=== PATIENT | male | born 1955 ===

== ENCOUNTER 2024-10-10 07:21 | Inpatient (IN) | payer OTHER ==
[~2024-10-10] VITALS: Ht 160 cm; Wt 49.9 kg
[2024-10-10] MEDS ORDERED: EZALLOR SPRINKL20 MG PO (08:17)
[2024-10-10] MEDS ORDERED: ECOTRIN81 MG PO (08:18)
[2024-10-10] MEDS ORDERED: COZAAR50 MG PO (08:18)
[2024-10-10] MEDS ORDERED: PLAVIX75 MG PO (08:19)
[2024-10-10] MEDS ORDERED: BUSPIRONE HCL5 MG PO (08:19)
[2024-10-10] MEDS ORDERED: [UNRECOGNIZED DRUG - OTHER] (08:20)
[2024-10-10] MEDS ORDERED: MEMANTINE HCL10 MG PO (08:20)
[2024-10-10 08:43] LABS: BASO % 0.3 % (0.1-1.2); EOS # 0.30 (0.04-0.54); EOS % 5.0 % (0.7-7.0); LYMPH # 1.67 (1.18-3.74); LYMPH % 27.7 % (19.3-53.1); MEAN PLATELET VOLUME 10.20 fl (9.4-12.4); MONO # 0.51 (0.24-0.82); MONO % 8.5 % (4.7-12.5); NEUT # 3.50 (1.56-6.13); NEUT % 58.0 % (34.0-71.1); RED CELL DISTRIBUTION WIDTH 13.6 % (11.6-14.4)
[2024-10-10 09:01] VITALS: BP 150/61
[2024-10-10 09:06] LABS: URINE APPEARANCE Clear; URINE BILIRRUBIN Negative (NEGATIVE); URINE BLOOD Negative; URINE COLOR Yellow; URINE GLUCOSE Negative (NEGATIVE); URINE KETONE Negative (NEGATIVE); URINE LEUKOCYTE Negative; URINE NITRATE Negative; URINE PROTEIN Negative (NEGATIVE); URINE UROBILINOGEN 0.2 E.U./dl
[2024-10-10 09:07] LABS: BUN CREA RATIO 20.0 (7.0-25.0); CREATININE SERUM 0.74 mg/dL (0.70-1.30); GFR 104.26; GLUCOSE FASTING 99.0 mg/dL (65-100); OSMOLALITY SERUM 278.0 MOSM/KG (275-295)
[2024-10-10 09:10] LABS: INR 0.97
[2024-10-10 09:11] LABS: URINE BACTERIA 4.8 uL (0.0-1933); URINE EPITHELIAL CELLS 3.0 uL (0.0-38.8); URINE RBC 5.4 uL (0.0-20.8); URINE WBC 2.4 uL (0.0-23.2)
[2024-10-10 09:35] LABS: URINE CAST 0.14 uL (0.0-1.40)
[2024-10-16] MEDS ORDERED: CEFAZOLIN SODIUM 1,000 MG VIAL ONE (09:10)
[2024-10-16] MEDS ORDERED: TRANEXAMIC ACID 100MG/1ML (1000MG) AMPUL ONE (09:10)
[2024-10-16] MEDS ORDERED: MORPHINE SULFATE 4 MG/ML CARTRIDGE IV ONE (13:15)
[2024-10-16] MEDS ORDERED: LIDOCAINE HCL 1%/EPINEPHRINE 20ML VIAL IJ ONE (13:15)
[2024-10-16] MEDS ORDERED: KETOROLAC TROMETHAMINE 60 MG VIAL IM ONE (13:15)
[2024-10-16] MEDS ORDERED: BUPIVACAINE HCL 30 ML VIAL IJ ONE (13:15)
[2024-10-16] MEDS ORDERED: GENTAMICIN SULFATE 40 MG/ML VIAL IV SCH (14:26)
[2024-10-16] MEDS ORDERED: ONDANSETRON HCL 2 MG/ML VIAL IV PRN (14:30)
[2024-10-16] MEDS ORDERED: SODIUM CHLORIDE 0.45 % 1,000 ML IV SCH (14:30)
[2024-10-16] MEDS ORDERED: MORPHINE SULFATE 2 MG/ML CARTRIDGE IV ONE (14:30)
[2024-10-16] MEDS ORDERED: MORPHINE SULFATE 4 MG/ML CARTRIDGE IV PRN (14:30)
[2024-10-16 17:58] VITALS: BP 136/70; O2SAT 97
[2024-10-16] MEDS ORDERED: CEFAZOLIN SODIUM 1,000 MG VIAL IV SCH (18:00)
[2024-10-16] MEDS ORDERED: KETOROLAC TROMETHAMINE 30 MG VIAL IJ ONE (18:30)
[2024-10-16] MEDS ORDERED: DEXAMETHASONE SODIUM PHOSPHATE 4 MG/ML VIAL IJ ONE (18:30)
[2024-10-17 00:49] VITALS: BP 130/73; O2SAT 97
[2024-10-17 06:16] LABS: BASO % 0.1 % (0.1-1.2); EOS # 0.16 (0.04-0.54); EOS % 1.6 % (0.7-7.0); LYMPH # 0.79 (1.18-3.74); LYMPH % 8.1 % (19.3-53.1); MEAN PLATELET VOLUME 10.80 fl (9.4-12.4); MONO # 0.70 (0.24-0.82); MONO % 7.2 % (4.7-12.5); NEUT # 8.06 (1.56-6.13); NEUT % 82.8 % (34.0-71.1); RED CELL DISTRIBUTION WIDTH 13.2 % (11.6-14.4)
[2024-10-17] MEDS ORDERED: ACETAMINOPHEN WITH CODEINE 1 UDTAB TABLET PO PRN (07:45)
[2024-10-17 08:00] VITALS: BP 117/74; O2SAT 97
[2024-10-17] MEDS ORDERED: BACITRACIN 28.35 GM OINT.TUBE TP SCH (09:00)
[2024-10-17] MEDS ORDERED: ROSUVASTATIN CALCIUM 20 MG TABLET PO SCH (09:00)
[2024-10-17] MEDS ORDERED: LOSARTAN POTASSIUM 50 MG TABLET PO SCH (09:00)
[2024-10-17] MEDS ORDERED: IRON FUM,PS/FOLIC/BCOMP,C NO.9 1 CAP CAPSULE PO SCH (09:00)
[2024-10-17] MEDS ORDERED: SENNA/DOCUSATE SODIUM 1 TAB TABLET PO SCH (09:00)
[2024-10-17] MEDS ORDERED: CELECOXIB 200 MG CAPSULE PO SCH (09:00)
[2024-10-17] MEDS ORDERED: RIVAROXABAN 10 MG TAB PO SCH (09:00)
[2024-10-17 15:11] LABS: COVID-19 AG NEGATIVE (NEGATIVE)
[2024-10-17 16:00] VITALS: BP 114/68; O2SAT 98
[2024-10-17] MEDS ORDERED: SULFAMETHOXAZOLE/TRIMETHOPRIM DS 1 TAB PO SCH (21:00)
[2024-10-18] MEDS ORDERED: INTEGRA PLUS C1 EACH PO (06:23)
[2024-10-18] MEDS ORDERED: Septra Ds Tablet PO (06:23)
[2024-10-18] MEDS ORDERED: XARELTO10 MG PO ×2 (06:23→06:33)
[2024-10-18] MEDS ORDERED: ACETAMINOPHEN-1 EAC2 PO (06:24)
[2024-10-18 06:58] LABS: BASO % 0.2 % (0.1-1.2); EOS # 0.23 (0.04-0.54); EOS % 2.4 % (0.7-7.0); LYMPH # 1.14 (1.18-3.74); LYMPH % 11.9 % (19.3-53.1); MEAN PLATELET VOLUME 11.10 fl (9.4-12.4); MONO # 0.92 (0.24-0.82); MONO % 9.6 % (4.7-12.5); NEUT # 7.23 (1.56-6.13); NEUT % 75.5 % (34.0-71.1); RED CELL DISTRIBUTION WIDTH 13.0 % (11.6-14.4)
[2024-10-18 10:29] VITALS: BP 159/87; O2SAT 96
[2024-10-18 16:42] VITALS: BP 121/78; O2SAT 99
== END 2024-10-18 20:49 | DRG 470 ==
LOC: O/R 10-16 05:35 → SURG 10-16 05:35 → SURH 10-16 07:00 → SURG 10-16 11:32
PROVIDERS: ADMIT Orthopaedic Surgery Sports Medicine; ATTEND Orthopaedic Surgery Sports Medicine
PROC: 0SRB0JZ Replacement of Left Hip Joint with Synthetic Substitute, Open Approach (ICD-10-PCS; principal; 2024-10-16 07:00)
DX: M16.12 Unilateral primary osteoarthritis, left hip (principal); I10 Essential (primary) hypertension

== ENCOUNTER 2024-10-13 10:09 | Outpatient (CLI) | payer OTHER ==
[~2024-10-13 10:09] MED LIST: BUSPIRONE HCL5 MG PO; COZAAR50 MG PO; ECOTRIN81 MG PO; EZALLOR SPRINKL20 MG PO; MEMANTINE HCL10 MG PO; PLAVIX75 MG PO; [UNRECOGNIZED DRUG - OTHER]
== END 2024-10-13 10:16 | disposition home or self-care (01) ==
LOC: RAD 10:09
PROVIDERS: ATTEND Orthopaedic Surgery Sports Medicine
DX: M16.12 Unilateral primary osteoarthritis, left hip (principal)